=== PATIENT | male | born 2000 | race African-American/Black ===

== ENCOUNTER 2018-02-07 04:26 | Emergency (ER) | payer OTHER ==
--- NOTE | 2018-02-07 04:53 | ER ---
Nurse's Notes [facility] Name: Warren Franco Age: 18 yrs Sex: Male : 2000 Arrival Date: 02/07/2018 Time: 04:29 Bed 5 Private MD: None, None Diagnosis: Left otitis externa Presentation: 02/07 04:35 Presenting complaint: Patient states: Left ear pain x 4 days; States cough, congestion lp1 last week that has resolved. Transition of care: patient was not received from another setting of care. Onset of symptoms was February 07, 2018. Risk Assessment: Do you want to hurt yourself or someone else? Patient reports no desire to harm self or others. Initial Sepsis Screen: Does the patient meet any 2 criteria? No. Patient's initial sepsis screen is negative. Does the patient have a suspected source of infection? No. Patient's initial sepsis screen is negative. Care prior to arrival: None. 04:35 Method Of Arrival: Ambulatory lp1 04:35 Acuity: TIFFANY 5 lp1 Historical: - Allergies: 04:37 No Known Allergies; lp1 - Home Meds: 04:37 None [Active]; lp1 - PMHx: 04:37 None; lp1 - PSHx: 04:37 None; lp1 - Immunization history:: Adult Immunizations up to date, Flu vaccine is not up to date. - Social history:: Smoking status: Patient/guardian denies using tobacco. - Ebola Screening: : No symptoms or risks identified at this time. Screenin:38 Abuse screen: Denies threats or abuse. Denies injuries from another. Nutritional lp1 screening: No deficits noted. Tuberculosis screening: No symptoms or risk factors identified. Fall Risk None identified. Assessment: 04:37 General: Appears in no apparent distress. Behavior is appropriate for age. Pain: lp1 Complains of pain in left ear Pain currently is 10 out of 10 on a pain scale. Neuro: No deficits noted. Cardiovascular: No deficits noted. Respiratory: No deficits noted. GI: No deficits noted. GI: No deficits noted. : No deficits noted. EENT: Reports pain in left ear. Derm: No deficits noted. Musculoskeletal: No deficits noted. Vital Signs: 04:36 BP 134 / 86; Pulse 86; Resp 16; Temp 97.8(TE); Pulse Ox 100% on R/A; Weight 63.5 kg; lp1 ED Course: 04:29 Patient arrived in ED. es 04:29 None, None is Private Physician. es 04:33 Byron Pham MD is Attending Physician. pkl 04:35 Sharmaine Ashby, RN is Primary Nurse. lp1 04:36 Triage completed. lp1 04:36 Arm band placed on right wrist. lp1 04:38 Patient has correct armband on for positive identification. lp1 04:38 No provider procedures requiring assistance completed. Patient did not have IV access lp1 during this emergency room visit. 04:52 Desiree Manzano MD is Referral Physician. pkl Administered Medications: 04:52 Drug: UltRAM 50 mg Route: PO; lp1 04:58 Follow up: Response: Medication administered at discharge. lp1 04:52 Drug: Cipro 500 mg Route: PO; lp1 04:58 Follow up: Response: Medication administered at discharge. lp1 Outcome: 04:52 Discharge ordered by MD. pkl 04:58 Discharged to home ambulatory, with significant other. lp1 04:58 Condition: good 04:58 Discharge instructions given to patient, Instructed on discharge instructions, follow up and referral plans. medication usage, Demonstrated understanding of instructions, follow-up care, medications, Prescriptions given X 2. 04:59 Patient left the ED. lp1 Signatures: Byron Pham MD MD pkl Latia Trammell Laura, RN RN lp1
--- NOTE | 2018-02-07 04:53 | EDPHYS ---
Physician Documentation [facility] Name: Warren Franco Age: 18 yrs Sex: Male : 2000 Arrival Date: 02/07/2018 Time: 04:29 Bed 5 Private MD: None, None ED Physician Byron Pham HPI: 02/07 04:45 This 18 yrs old Black Male presents to ER via Ambulatory with complaints of Ear Pain. pkl 04:45 The patient presents with pain, moderate. The complaints affect the left ear. Onset: pkl The symptoms/episode began/occurred 4 day(s) ago. Patient said he had cough and congestion last week and now has resolved. Historical: - Allergies: 04:37 No Known Allergies; lp1 - Home Meds: 04:37 None [Active]; lp1 - PMHx: 04:37 None; lp1 - PSHx: 04:37 None; lp1 - Immunization history:: Adult Immunizations up to date, Flu vaccine is not up to date. - Social history:: Smoking status: Patient/guardian denies using tobacco. - Ebola Screening: : No symptoms or risks identified at this time. ROS: 04:45 Eyes: Negative for injury, pain, redness, and discharge. pkl 04:45 ENT: Positive for ear pain. 04:45 Neck: Negative for stiffness. 04:45 Cardiovascular: Negative for chest pain. 04:45 Respiratory: Negative for cough, shortness of breath. 04:45 Abdomen/GI: Negative for abdominal pain, nausea, vomiting, and diarrhea. 04:45 Back: Negative for acute changes. 04:45 : Negative for urinary symptoms. 04:45 MS/extremity: Negative for acute changes. 04:45 Skin: Negative for rash. 04:45 Neuro: Negative for altered mental status. Exam: 04:45 Head/Face: Normocephalic, atraumatic. pkl 04:45 Eyes: Exam is negative for acute changes. 04:45 ENT: External ear(s): erythema, that is moderate, of the left ear. 04:45 Neck: Exam negative for nuchal rigidity. 04:45 Chest/axilla: Exam negative for acute changes. 04:45 Cardiovascular: Rate: normal, Rhythm: regular. 04:45 Respiratory: the patient does not display signs of respiratory distress, Respirations: normal, Breath sounds: are clear throughout. 04:45 Abdomen/GI: Exam negative for acute changes. 04:45 Back: Exam negative for acute changes. 04:45 : Exam negative for acute changes. 04:45 Musculoskeletal/extremity: Exam is negative for acute changes. 04:45 Skin: Exam negative for rash. 04:45 Neuro: Orientation: is normal, Mentation: is normal, Cranial nerves: grossly normal, Motor: is normal. Vital Signs: 04:36 BP 134 / 86; Pulse 86; Resp 16; Temp 97.8(TE); Pulse Ox 100% on R/A; Weight 63.5 kg; lp1 MDM: 04:33 Patient medically screened. pkl 04:51 Data reviewed: vital signs, nurses notes. pkl Administered Medications: 04:52 Drug: UltRAM 50 mg Route: PO; lp1 04:58 Follow up: Response: Medication administered at discharge. lp1 04:52 Drug: Cipro 500 mg Route: PO; lp1 04:58 Follow up: Response: Medication administered at discharge. lp1 Disposition: 02/07/18 04:52 Discharged to Home. Impression: Left otitis externa. - Condition is Stable. - Prescriptions for Cipro HC 0.2- 1 % Otic Drops - instill 3 drop by OTIC route every 12 hours for 7 days; 10 milliliter. Cipro 500 mg Oral Tablet - take 1 tablet by ORAL route every 12 hours for 7 days; 14 tablet. - Medication Reconciliation Form, Thank You Letter, Antibiotic Education, Prescription Opioid Use form. - Follow up: Desiree Manzano MD; When: 2 - 3 days; Reason: Re-evaluation by your physician. - Problem is new. - Symptoms are unchanged. Signatures: Byron Pham MD MD pkl Sharmaine Ashby RN RN lp1 Corrections: (The following items were deleted from the chart) 04:59 04:52 02/07/2018 04:52 Discharged to Home. Impression: Left otitis externa. Condition lp1 is Stable. Forms are Medication Reconciliation Form, Thank You Letter, Antibiotic Education, Prescription Opioid Use. Follow up: Desiree Manzano; When: 2 - 3 days; Reason: Re-evaluation by your physician. Problem is new. Symptoms are unchanged. pkl
[2018-02-07] MEDS ORDERED: TRAMADOL HCL 50 MG TAB ONE (05:00)
[2018-02-07] MEDS ORDERED: CIPROFLOXACIN HCL 500 MG TAB ONE (05:00)
== END 2018-02-07 04:59 | disposition home or self-care (01) ==
LOC: ER 04:26
DX: H60.92 Unspecified otitis externa, left ear (principal)
CPT/HCPCS: 99283

== ENCOUNTER 2019-12-13 22:26 | Emergency (ER) | payer OTHER ==
--- NOTE | 2019-12-13 22:49 | EDPHYS ---
Physician Documentation [facility] Name: Warren Franco Age: 19 yrs Sex: Male : 2000 Arrival Date: 12/13/2019 Time: 22:27 Bed 8 Private MD: ED Physician Joe Valdivia HPI: 12/12 22:46 This 19 yrs old Black Male presents to ER via Unassigned with complaints of Pain With jmm Urination. 22:46 The patient presents with a known STD exposure, with a history of engaging in sex with jmm a single partner, did not use protection, a possible STD exposure, symptoms include dysuria. Onset: The symptoms/episode began/occurred today. Modifying factors: The symptoms are alleviated by nothing, the symptoms are aggravated by nothing. Associated signs and symptoms: Pertinent positives: dysuria, Pertinent negatives: fever, hematuria. States his partner was recently diagnosed with gonorrhea. Historical: - Allergies: 22:35 No Known Allergies; jb4 - Home Meds: 22:35 None [Active]; jb4 - PMHx: 22:35 None; jb4 - PSHx: 22:35 None; jb4 - Immunization history:: Adult Immunizations up to date. - Social history:: Smoking status: Patient denies any tobacco usage or history of. Patient/guardian denies using alcohol, street drugs. ROS: 22:46 Constitutional: Negative for fever, chills, and weight loss, Cardiovascular: Negative jmm for chest pain, palpitations, and edema, Respiratory: Negative for shortness of breath, cough, wheezing, and pleuritic chest pain, Abdomen/GI: Negative for abdominal pain, nausea, vomiting, diarrhea, and constipation. 22:46 : Positive for urinary symptoms. 22:46 All other systems are negative. Exam: 22:46 Constitutional: This is a well developed, well nourished patient who is awake, alert, jmm and in no acute distress. Head/Face: atraumatic. Eyes: EOMI, no conjunctival erythema appreciated ENT: Moist Mucus Membranes Neck: Trachea midline, Supple Chest/axilla: Normal chest wall appearance and motion. Respiratory: Normal respirations, no respiratory distress appreciated Abdomen/GI: Non distended, soft Back: Normal ROM Skin: General appearance color normal MS/ Extremity: Moves all extremities, no obvious deformities appreciated, no edema noted to the lower extremities Neuro: Awake and alert, normal gait Psych: Behavior is normal, Mood is normal, Patient is cooperative and pleasant Vital Signs: 22:35 BP 127 / 63; Pulse 96; Resp 16; Temp 99.3(O); Pulse Ox 100% on R/A; Weight 90.72 kg jb4 (R); Height 6 ft. 3 in. (190.50 cm); Pain 0/10; 22:35 Body Mass Index 25.00 (90.72 kg, 190.50 cm) jb4 MDM: 22:44 Patient medically screened. [facility] 22:47 Data reviewed: vital signs, nurses notes. Counseling: I had a detailed discussion with kyler the patient and/or guardian regarding: the historical points, exam findings, and any diagnostic results supporting the discharge/admit diagnosis, the need for outpatient follow up, to return to the emergency department if symptoms worsen or persist or if there are any questions or concerns that arise at home. ED course: Patient is alert and non toxic in appearance. Partner is treated as well. . Administered Medications: 23:04 Drug: Rocephin (cefTRIAXone) 250 mg Route: IM; Site: left gluteus; jb4 23:18 Follow up: Response: No adverse reaction jb4 23:04 Drug: AZITHromycin 1 grams Route: PO; jb4 23:18 Follow up: Response: No adverse reaction jb4 23:04 Drug: Flagyl 2 grams Route: PO; jb4 23:18 Follow up: Response: No adverse reaction jb4 Disposition: 12/13 01:42 Co-signature as Attending Physician, Joe Valdivia MD. rn Disposition: 12/13/19 22:48 Discharged to Home. Impression: Contact with and (suspected) exposure to infections with a predominantly sexual mode of transmission. - Condition is Stable. - Discharge Instructions: Sexually Transmitted Disease. - Medication Reconciliation Form, Thank You Letter, Antibiotic Education, Prescription Opioid Use form. - Follow up: Private Physician; When: 2 - 3 days; Reason: Recheck today's complaints, Continuance of care, Re-evaluation by your physician. Signatures: Wilfredo Aguirre PA PA jmm Nieto, Roman, MD MD rn Bryson, James, RN RN jb4 Corrections: (The following items were deleted from the chart) 12/12 23:17 22:48 12/13/2019 22:48 Discharged to Home. Impression: Contact with and (suspected) jb4 exposure to infections with a predominantly sexual mode of transmission. Condition is Stable. Forms are Medication Reconciliation Form, Thank You Letter, Antibiotic Education, Prescription Opioid Use. Follow up: Private Physician; When: 2 - 3 days; Reason: Recheck today's complaints, Continuance of care, Re-evaluation by your physician. kyler
--- NOTE | 2019-12-13 22:49 | ER ---
Nurse's Notes [facility] Name: Warren Franco Age: 19 yrs Sex: Male : 2000 Arrival Date: 12/13/2019 Time: 22:27 Bed 8 Private MD: Diagnosis: Contact with and (suspected) exposure to infections with a predominantly sexual mode of transmission Presentation: 12/12 22:35 Chief complaint: Patient states: I had unprotected sex 4-5 days ago and she told me jb4 today that she had something and that I should get tested. 22:35 Method Of Arrival: Ambulatory jb4 22:35 Coronavirus screen: Client denies travel out of the [place] in the last 14 days. Ebola jb4 Screen: Patient negative for fever greater than or equal to 101.5 degrees Fahrenheit, and additional compatible Ebola Virus Disease symptoms. Initial Sepsis Screen: Does the patient meet any 2 criteria? HR > 90 bpm. Yes Does the patient have a suspected source of infection? No. Patient's initial sepsis screen is negative. Risk Assessment: Do you want to hurt yourself or someone else? Patient reports no desire to harm self or others. Onset of symptoms was December 13, 2019. Transition of care: patient was not received from another setting of care. 22:35 Acuity: TIFFANY 4 jb4 Triage Assessment: 22:35 General: Appears in no apparent distress. comfortable, Behavior is calm, cooperative. jb4 Pain: Denies pain. EENT: No signs and/or symptoms were reported regarding the EENT system. Neuro: Level of Consciousness is awake, alert, obeys commands, Oriented to person, place, time, situation. Cardiovascular: Patient's skin is warm and dry. Respiratory: Airway is patent Respiratory effort is even, unlabored, Respiratory pattern is regular, symmetrical. GI: No signs and/or symptoms were reported involving the gastrointestinal system. : No signs and/or symptoms were reported regarding the genitourinary system. Derm: Skin is intact, Skin is normal. Musculoskeletal: Circulation, motion, and sensation intact. Range of motion: intact in all extremities. Historical: - Allergies: 22:35 No Known Allergies; jb4 - Home Meds: 22:35 None [Active]; jb4 - PMHx: 22:35 None; jb4 - PSHx: 22:35 None; jb4 - Immunization history:: Adult Immunizations up to date. - Social history:: Smoking status: Patient denies any tobacco usage or history of. Patient/guardian denies using alcohol, street drugs. Screenin:35 Abuse screen: Denies threats or abuse. Nutritional screening: No deficits noted. jb4 Tuberculosis screening: No symptoms or risk factors identified. Fall Risk None identified. Assessment: 22:35 Reassessment: see triage assesment. jb4 23:05 Reassessment: Pt of 15 minutes shot time. jb4 23:18 Reassessment: Patient appears in no apparent distress at this time. Patient and/or jb4 family updated on plan of care and expected duration. Pain level reassessed. Patient is alert, oriented x 3, equal unlabored respirations, skin warm/dry/pink. Vital Signs: 22:35 BP 127 / 63; Pulse 96; Resp 16; Temp 99.3(O); Pulse Ox 100% on R/A; Weight 90.72 kg jb4 (R); Height 6 ft. 3 in. (190.50 cm); Pain 0/10; 22:35 Body Mass Index 25.00 (90.72 kg, 190.50 cm) jb4 ED Course: 22:27 Patient arrived in ED. cl3 22:32 Christophe Levi, DANICA is Primary Nurse. jb4 22:32 Wilfredo Aguirre PA is PHCP. jmm 22:32 Joe Valdivia MD is Attending Physician. [facility] 22:35 Arm band placed on right wrist. jb4 22:35 Patient has correct armband on for positive identification. Placed in gown. Bed in low jb4 position. Call light in reach. Side rails up X 1. Pulse ox on. NIBP on. 22:47 Triage completed. jb4 23:18 No provider procedures requiring assistance completed. Patient did not have IV access jb4 during this emergency room visit. Administered Medications: 23:04 Drug: Rocephin (cefTRIAXone) 250 mg Route: IM; Site: left gluteus; jb4 23:18 Follow up: Response: No adverse reaction jb4 23:04 Drug: AZITHromycin 1 grams Route: PO; jb4 23:18 Follow up: Response: No adverse reaction jb4 23:04 Drug: Flagyl 2 grams Route: PO; jb4 23:18 Follow up: Response: No adverse reaction jb4 Outcome: 22:48 Discharge ordered by . kyler 23:17 Patient left the ED. jb4 23:18 Discharged to home ambulatory. jb4 23:18 Condition: stable 23:18 Discharge instructions given to patient, Instructed on discharge instructions, follow up and referral plans. Demonstrated understanding of instructions, follow-up care. Signatures: Wilfredo Aguirre PA PA jmm Bryson, James, DANICA RN [email or web address] Anabel Franco cl3
[2019-12-13] MEDS ORDERED: metroNIDAZOLE 500 MG TABLET ONE (23:06)
[2019-12-13] MEDS ORDERED: AZITHROMYCIN 250 MG TAB ONE (23:06)
[2019-12-13] MEDS ORDERED: WATER FOR INJ,STERILE 10 ML ONE (23:06)
[2019-12-13] MEDS ORDERED: CEFTRIAXONE 250 MG/VIAL ONE (23:06)
[2019-12-13 23:40] VITALS: BP 127/63; TEMP 99.3; O2SAT 100
== END 2019-12-13 23:17 | disposition home or self-care (01) ==
LOC: ER 22:26
DX: Z20.2 Contact with and (suspected) exposure to infections with a predominantly sexual mode of transmission (principal)
CPT/HCPCS: 96372; 99283; J0696

== ENCOUNTER 2020-06-04 19:40 | Emergency (ER) | payer OTHER ==
--- NOTE | 2020-06-04 20:57 | ER ---
Nurse's Notes [facility] Name: Warren Franco Age: 20 yrs Sex: Male : 2000 Arrival Date: 06/04/2020 Time: 19:45 Bed 28 Private MD: Diagnosis: Unspecified sexually transmitted disease Presentation: 06/04 19:59 Chief complaint: Patient states: Penile discharge since yesterday, greenish discharge, ca1 with suprapubic pain. Coronavirus screen: Client denies travel out of the [place] in the last 14 days. At this time, the client does not indicate any symptoms associated with coronavirus-19. Ebola Screen: Patient negative for fever greater than or equal to 101.5 degrees Fahrenheit, and additional compatible Ebola Virus Disease symptoms Patient denies exposure to infectious person. Patient denies travel to an Ebola-affected area in the 21 days before illness onset. No symptoms or risks identified at this time. Initial Sepsis Screen: Does the patient meet any 2 criteria? No. Patient's initial sepsis screen is negative. Does the patient have a suspected source of infection? No. Patient's initial sepsis screen is negative. Risk Assessment: Do you want to hurt yourself or someone else? Patient reports no desire to harm self or others. Onset of symptoms was June 04, 2020. 19:59 Method Of Arrival: Ambulatory ca1 19:59 Acuity: TIFFANY 4 ca1 Historical: - Allergies: 20:01 No Known Allergies; ca1 - Home Meds: 20:01 None [Active]; ca1 - PMHx: 20:01 None; ca1 - PSHx: 20:01 None; ca1 - Immunization history:: Flu vaccine is not up to date. - Social history:: Smoking status: Patient denies any tobacco usage or history of. Screenin:03 Abuse screen: Denies threats or abuse. Denies injuries from another. Nutritional jm8 screening: No deficits noted. Tuberculosis screening: No symptoms or risk factors identified. Fall Risk None identified. Assessment: 21:02 General: Appears in no apparent distress. comfortable, Behavior is calm, cooperative, jm8 appropriate for age, Denies fever, feeling ill, chills. Pain: Denies pain. Neuro: No deficits noted. Cardiovascular: No deficits noted. Respiratory: No deficits noted. GI: No deficits noted. : Reports burning with urination, since yesterday discharge, green. EENT: No deficits noted. Derm: No deficits noted. Musculoskeletal: No deficits noted. Vital Signs: 19:59 BP 124 / 82; Pulse 66; Resp 18 S; Temp 98(TE); Pulse Ox 100% on R/A; Weight 92.99 kg ca1 (R); Height 6 ft. 3 in. (190.50 cm) (R); Pain 8/10; 21:14 BP 122 / 74; Pulse 62; Resp 17; Pulse Ox 100% ; jm8 19:59 Body Mass Index 25.62 (92.99 kg, 190.50 cm) ca1 ED Course: 19:45 Patient arrived in ED. bp1 20:01 Triage completed. ca1 20:01 Arm band placed on right wrist. ca1 20:40 Nor[facility]C [facility] kb 20:40 Marquis Shaw MD is Attending Physician. kb 21:03 No provider procedures requiring assistance completed. Patient did not have IV access jm8 during this emergency room visit. 21:04 Patient has correct armband on for positive identification. Bed in low position. Call jm8 light in reach. Side rails up X2. 21:07 Anita Billy, RN is Primary Nurse. iw Administered Medications: 21:01 Drug: Zithromax (azithromycin) 1 grams Route: PO; jm8 21:04 Follow up: Response: No adverse reaction jm8 21:01 Drug: Rocephin (cefTRIAXone) 500 mg Route: IM; Site: left ventrogluteal; jm8 21:04 Follow up: Response: No adverse reaction [facility] Outcome: 20:57 Discharge ordered by . kb 21:13 Discharged to home ambulatory. jm8 21:13 Condition: good 21:13 Discharge instructions given to patient. 21:14 Patient left the ED. jm8 Signatures: Noris Lee FNP-C FNP-Anita Alvarado RN DANICA iw Bushra Verduzco RN RN ca1 Mandy Doe bp1 Festus Ruvalcaba RN RN jm8
--- NOTE | 2020-06-04 20:57 | EDPHYS ---
Physician Documentation [facility] Name: Warren Franco Age: 20 yrs Sex: Male : 2000 Arrival Date: 06/04/2020 Time: 19:45 Bed 28 Private MD: ED Physician Marquis Shaw HPI: 06/05 00:43 This 20 yrs old Black Male presents to ER via Ambulatory with complaints of STD kb Exposure. 00:44 The patient presents with a possible STD exposure, symptoms include dysuria, green kb penile discharge. Onset: The symptoms/episode began/occurred yesterday. Modifying factors: The symptoms are alleviated by nothing, the symptoms are aggravated by urinating. Associated signs and symptoms: Pertinent positives: dysuria, Pertinent negatives: abdominal pain, constipation, diarrhea, fever, hematuria, nausea, vomiting. Severity of symptoms: At their worst the symptoms were moderate, in the emergency department the symptoms are unchanged. The patient has not experienced similar symptoms in the past. The patient has not recently seen a physician. Historical: - Allergies: 06/04 20:01 No Known Allergies; ca1 - Home Meds: 20:01 None [Active]; ca1 - PMHx: 20:01 None; ca1 - PSHx: 20:01 None; ca1 - Immunization history:: Flu vaccine is not up to date. - Social history:: Smoking status: Patient denies any tobacco usage or history of. ROS: 06/05 00:43 Constitutional: Negative for fever, chills, and weight loss, Respiratory: Negative for kb shortness of breath, cough, wheezing, and pleuritic chest pain, Abdomen/GI: Negative for abdominal pain, nausea, vomiting, diarrhea, and constipation, MS/Extremity: Negative for injury and deformity, Skin: Negative for injury, rash, and discoloration, Neuro: Negative for headache, weakness, numbness, tingling, and seizure. : Positive for burning with urination, penile discharge. Exam: 00:43 Constitutional: This is a well developed, well nourished patient who is awake, alert, kb and in no acute distress. Head/Face: Normocephalic, atraumatic. Respiratory: Respirations even and unlabored. No increased work of breathing, no retractions or nasal flaring. Abdomen/GI: Soft, non-tender. No distention Skin: Warm, dry with normal turgor. Normal color. MS/ Extremity: Pulses equal, no cyanosis. Neurovascular intact. Full, normal range of motion. Neuro: Awake and alert, GCS 15, oriented to person, place, time, and situation. Moves all extremities. Normal gait. Vital Signs: 06/04 19:59 BP 124 / 82; Pulse 66; Resp 18 S; Temp 98(TE); Pulse Ox 100% on R/A; Weight 92.99 kg ca1 (R); Height 6 ft. 3 in. (190.50 cm) (R); Pain 8/10; 21:14 BP 122 / 74; Pulse 62; Resp 17; Pulse Ox 100% ; jm8 19:59 Body Mass Index 25.62 (92.99 kg, 190.50 cm) ca1 MDM: 20:40 Patient medically screened. kb 06/05 00:42 Data reviewed: vital signs, nurses notes. Data interpreted: Pulse oximetry: on room air kb is 100 %. Interpretation: normal. Counseling: I had a detailed discussion with the patient and/or guardian regarding: the historical points, exam findings, and any diagnostic results supporting the discharge/admit diagnosis, the need for outpatient follow up, a family practitioner, to return to the emergency department if symptoms worsen or persist or if there are any questions or concerns that arise at home. Administered Medications: 06/04 21:01 Drug: Zithromax (azithromycin) 1 grams Route: PO; jm8 21:04 Follow up: Response: No adverse reaction [facility] 21:01 Drug: Rocephin (cefTRIAXone) 500 mg Route: IM; Site: left ventrogluteal; 8 21:04 Follow up: Response: No adverse reaction 8 Disposition: 06/05 14:53 Co-signature as Attending Physician, Marquis Shaw MD I agree with the assessment and melanie plan of care. Disposition: 06/04/20 20:57 Discharged to Home. Impression: Unspecified sexually transmitted disease. - Condition is Stable. - Discharge Instructions: Sexually Transmitted Disease, [id number]. - Medication Reconciliation Form, Thank You Letter, Antibiotic Education, Prescription Opioid Use form. - Follow up: Emergency Department; When: As needed; Reason: Worsening of condition. Follow up: Private Physician; When: 2 - 3 days; Reason: Recheck today's complaints, Continuance of care, Re-evaluation by your physician. Signatures: Noris Lee, BUTTON TUFTER-C BUTTON TUFTER-Marquis Paulino MD MD cha Acob, Cheryl RN Festus Moyer RN RN jm8 Corrections: (The following items were deleted from the chart) 06/04 21:14 20:57 06/04/2020 20:57 Discharged to Home. Impression: Unspecified sexually transmitted jm8 disease. Condition is Stable. Forms are Medication Reconciliation Form, Thank You Letter, Antibiotic Education, Prescription Opioid Use. Follow up: Emergency Department; When: As needed; Reason: Worsening of condition. Follow up: Private Physician; When: 2 - 3 days; Reason: Recheck today's complaints, Continuance of care, Re-evaluation by your physician. kb
[2020-06-04] MEDS ORDERED: AZITHROMYCIN 250 MG TAB ONE (21:11)
[2020-06-04] MEDS ORDERED: CEFTRIAXONE 500 MG/VIAL ONE (21:11)
[2020-06-04 21:20] VITALS: TEMP 98; O2SAT 100
[2020-06-04 21:21] VITALS: BP 122/74
== END 2020-06-04 21:14 | disposition home or self-care (01) ==
LOC: ER 19:40
DX: A64 Unspecified sexually transmitted disease (principal)
CPT/HCPCS: 96372; 99283; J0696